=== PATIENT | male | born 1980 | race Hispanic/Latino ===

== ENCOUNTER → 2018-10-12 | Outpatient (REF) | payer OTHER | LOC: M SFHCLERA 17:01 | PROVIDERS: ATTEND Nurse Practitioner Family | DX: R53.81 Other malaise (principal) ==

== ENCOUNTER 2018-12-29 12:27 | Emergency (ER) | payer OTHER ==
[~2018-12-29] VITALS: Ht 167.6 cm; Wt 78.2 kg
[2018-12-29 12:28] VITALS: BP 120/75
[2018-12-29] MEDS ORDERED: PROZ20CA11 PO (12:33)
[2018-12-29] MEDS ORDERED: KETOROLAC TROMETHAMINE 10 MG TAB PO ONE (13:30)
[2018-12-29] MEDS ORDERED: KETO10TAB PO (13:33)
--- NOTE | 2018-12-29 13:43 | REP ---
LEFT ANKLE, FOUR VIEWS: HISTORY: Pain. There is no acute fracture or dislocation. The joint space is normal in appearance. Soft tissue swelling is present. IMPRESSION: There is no acute fracture or dislocation. Electronically Signed by Elie Abarca MD 12/29/2018 01:44 P
== END 2018-12-29 13:45 | disposition home or self-care (01) ==
LOC: M ED 12:27
DX: S93.402A Sprain of unspecified ligament of left ankle, initial encounter (principal); M25.472 Effusion, left ankle; X50.1XXA Overexertion from prolonged static or awkward postures, initial encounter; Y92.89 Other specified places as the place of occurrence of the external cause; Z79.899 Other long term (current) drug therapy

== ENCOUNTER 2020-04-09 20:37 | Inpatient (IN) | payer OTHER ==
[~2020-04-09] VITALS: Ht 167.6 cm; Wt 81.7 kg
[~2020-04-09 20:37] MED LIST: KETO10TAB PO; PROZ20CA11 PO
[2020-04-09] MEDS ORDERED: NS 1,000 ML IV ONE (20:45)
[2020-04-09] MEDS ORDERED: MULTIVITAMIN -ADULT INJECTION 10 ML, THIAMINE INJection 100 MG, FOLIC ACID 1 MG in NS 1... IV ONE (21:00)
[2020-04-09 21:20] LABS: BASO % 0.2 % (0.0-1.0); HEMATOCRIT 43.3 % (42.0-52.0); HEMOGLOBIN 15.4 g/dl (13.5-17.5); LYMPH # 0.7 10^3/uL (1.5-5.0); LYMPH % 4.2 % (24.0-44.0); MEAN CORPUSCULAR HGB CONC 35.6 g/dl (32.0-36.5); MONO # 1.5 10^3/uL (0.0-0.8); MONO % 9.3 % (0.0-5.0); NEUTROPHILS # 14.2 10^3/uL (1.5-8.5); NEUTROPHILS % 85.9 % (36.0-66.0); PLATELET COUNT, AUTOMATED 177 10^3/uL (150-450); RED BLOOD COUNT 4.81 10^6/uL (4.30-6.10); WHITE BLOOD COUNT 16.5 10^3/uL (4.0-10.0)
[2020-04-09 21:49] LABS: ALBUMIN 4.3 GM/DL (3.2-5.2); ALT/SGPT 80 U/L (12-78); BILIRUBIN,DIRECT 0.7 MG/DL (0.0-0.2); BILIRUBIN,TOTAL 1.9 MG/DL (0.2-1.0); BLOOD UREA NITROGEN 21 MG/DL (7-18); CALCIUM LEVEL 9.4 MG/DL (8.5-10.1); CARBON DIOXIDE LEVEL 20 MEQ/L (21-32); CHLORIDE LEVEL 93 MEQ/L (98-107); CK-MB VALUE MASS 17.1 NG/ML (<3.6); CPK CREATINE PHOSPHOKINASE 2351 U/L (39-308); CREATININE FOR GFR 1.85 MG/DL (0.70-1.30); GLOMERULAR FILTRATION RATE 43.8 (>60); GLUCOSE, FASTING 145 MG/DL (70-100); LIPASE 414 U/L (73-393); MB/CK RELATIVE INDEX 0.73 (< OR =4); POTASSIUM SERUM 3.4 MEQ/L (3.5-5.1); SODIUM LEVEL 133 MEQ/L (136-145); TROPONIN I < 0.02 NG/ML (< 0.10)
[2020-04-09] MEDS ORDERED: PHENobarbital INJ 65 MG/ML VIAL (J2560) IV ONE ×3 (22:00→22:30)
--- NOTE | 2020-04-09 22:14 | REPVR ---
PROCEDURE INFORMATION: Exam: CT Head Without Contrast Exam date and time: 04/09/2020 10:04 PM Age: 39 years old Clinical indication: Pain; Headache; Additional info: Traum TECHNIQUE: Imaging protocol: Computed tomography of the head without contrast. Radiation optimization: All CT scans at this facility use at least one of these dose optimization techniques: automated exposure control; mA and/or kV adjustment per patient size (includes targeted exams where dose is matched to clinical indication); or iterative reconstruction. COMPARISON: No relevant prior studies available. FINDINGS: Brain: Normal. No hemorrhage. Unremarkable white matter. No mass effect. Ventricles: Normal. No ventriculomegaly. Bones/joints: Unremarkable. No acute fracture. Sinuses: Visualized sinuses are unremarkable. No fluid levels. Mastoid air cells: Visualized mastoid air cells are well aerated. Soft tissues: Unremarkable. IMPRESSION: No acute intracranial abnormality. Electronically signed by: Humphrey Macedo On 04/09/2020 22:13:18 PM
--- NOTE | 2020-04-09 22:19 | REPVR ---
PROCEDURE INFORMATION: Exam: CT Abdomen And Pelvis Without Contrast Exam date and time: 04/09/2020 10:04 PM Age: 39 years old Clinical indication: Abdominal pain; Epigastric; Additional info: [place]um TECHNIQUE: Imaging protocol: Computed tomography of the abdomen and pelvis without contrast. Radiation optimization: All CT scans at this facility use at least one of these dose optimization techniques: automated exposure control; mA and/or kV adjustment per patient size (includes targeted exams where dose is matched to clinical indication); or iterative reconstruction. COMPARISON: No relevant prior studies available. FINDINGS: Liver: There is a diffuse decrease in hepatic parenchymal density, consistent with steatosis. Gallbladder and bile ducts: Increased density within the lumen of the gallbladder consistent with sludge. No calculi visualized. Pancreas: Normal. No ductal dilation. Spleen: Normal. No splenomegaly. Adrenals: Normal. No mass. Kidneys and ureters: Normal. No hydronephrosis. Stomach and bowel: There is gastric distention with retained secretions. Clinical correlation to exclude gastroparesis or gastric outlet obstruction suggested. Streaky increased density demonstrated in the mesentery adjacent to the gastric antrum and duodenum may be posttraumatic. Appendix: No evidence of appendicitis. Intraperitoneal space: Unremarkable. No free air. No significant fluid collection. Vasculature: Unremarkable. No abdominal aortic aneurysm. Lymph nodes: Unremarkable. No enlarged lymph nodes. Bladder: Unremarkable as visualized. Reproductive: The prostate gland demonstrates mild hyperplasia. Bones/joints: Fracture transverse process on the left at L1. Soft tissues: Unremarkable. IMPRESSION: 1. Fracture transverse process on the left at L1. 2. There is a diffuse decrease in hepatic parenchymal density, consistent with steatosis. 3. Increased density within the lumen of the gallbladder consistent with sludge. No calculi visualized. 4. There is gastric distention with retained secretions. Clinical correlation to exclude gastroparesis or gastric outlet obstruction suggested. 5. Mild prostatic hyperplasia. 6. Streaky increased density demonstrated in the mesentery adjacent to the gastric antrum and duodenum may be posttraumatic. Electronically signed by: Humphrey Macedo On 04/09/2020 22:19:18 PM
[2020-04-09] MEDS ORDERED: ONDANSETRON 4MG/2ML VIAL IV ONE (23:00)
[2020-04-09] MEDS ORDERED: PHENobarbital INJ 65 MG/ML VIAL (J2560) IV STA ×2 (23:02→23:14)
[2020-04-09] MEDS ORDERED: POTASSIUM CHLORIDE 10 MEQ SR TABLET PO ONE (23:15)
--- NOTE | 2020-04-09 23:34 | HPEPDOC ---
General Date of Admission 04/09/20 Date of Service: Apr 09, 2020 Chief Complaint The patient is a 39-year-old male admitted with a reason for visit of Abd Pain. 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 Patient stated that he has been diagnosed with alcoholism and he was on rehabilitation program however he recently started drinking again. He states that he drinks 12 bottles of beer every day and hard liquor. Patient also reported that he had some suicidal ideation. Today he developed shakiness of his body and hands tremors associated with nausea and multiple episodes of vomiting. In ER patient was found to have acute severe distress, leukocytosis of 16.5, potassium 3.4 creatinine 1.85, total bili 1.9, [id number], ALT 18, CPK 2351. CT abdomen/pelvis showed fractured transverse process on the left at 1 L1, There is a diffuse decrease in hepatic parenchymal density, consistent with steatosis. Home Medications Scheduled Fluoxetine HCl (Prozac) 20 Mg Cap, 60 MG PO DAILY, (Reported) Folic Acid (Folic Acid) 1 Mg Tablet, 1 MG PO DAILY Multivitamins (Thera M Plus Tablet) 1 Each Tablet, 1 TAB PO DAILY Allergies Coded Allergies: No Known Allergies (Unverified , 12/29/18) Past Medical History Medical History Depression, anxiety, EtOH abuse Family History Both parents suffered from alcoholism Social History * Smoker: current smoker Alcohol: heavy Drugs: denies A-FIB/CHADSVASC A-FIB History Current/History of A-Fib/PAF?: No Current PO Anticoag Therapy: No Review of Systems Constitutional: Denies: Fever, Malaise Eyes: Denies: Pain, Vision change ENT: Denies: Head Aches, Ear Pain Skin: Denies: Rash, Lesions Pulmonary: Denies: Dyspnea, Cough Cardiovascular: Reports: Palpitations Gastrointestinal: Reports: Nausea, Vomiting Genitourinary: Denies: Dysuria, Frequency Hematologic: Reports: Bruising; Denies: Bleeding Excessively Endocrine: Denies: Polydipsia, Polyphagia Musculoskeletal: Reports: Back Pain Neurological: Denies: Weakness, Numbness Psych: Reports: Anxiety Physical Examination General Exam: Positive: Alert, Cooperative, Other (tender palpation over L1) Eye Exam: Positive: PERRLA ENT Exam: Positive: Atraumatic Neck Exam: Positive: Supple; Negative: JVD Chest Exam: Positive: Clear to auscultation Heart Exam: Positive: Tachycardic Telemetry: Positive: Sinus Abdomen Exam: Positive: BS Hypoactive Extremity Exam: Positive: Other (large bruise of left arm); Negative: Clubbing, Cyanosis Skin Exam: Positive: Nl turgor and temperature Neuro Exam: Positive: Cranial Nerves 3-12 NL Psych Exam: Positive: Anxiety Vital Signs Vital Signs Date Time Temp Pulse Resp B/P (MAP) Pulse Ox O2 Delivery O2 Flow Rate FiO2 04/09/20 22:22 132 22 97 Room Air 04/09/20 22:16 142/86 (104) 04/09/20 20:46 99.7 Laboratory Data Labs 24H Laboratory Tests 2 04/09/20 20:55: Immature Granulocyte % (Auto) 0.4, Neutrophils (%) (Auto) 85.9H, Lymphocytes (%) (Auto) 4.2L, Monocytes (%) (Auto) 9.3H, Eosinophils (%) (Auto) 0.0, Basophils (%) (Auto) 0.2, Neutrophils # (Auto) 14.2H, Lymphocytes # (Auto) 0.7L, Monocytes # (Auto) 1.5H, Eosinophils # (Auto) 0.0, Basophils # (Auto) 0.0, Nucleated Red Blood Cells % (auto) 0.0, Anion Gap 20H, Glomerular Filtration Rate 43.8L, Calcium Level 9.4, Total Bilirubin 1.9H, Direct Bilirubin 0.7H, Aspartate Amino Transf (AST/SGOT) 105H, Alanine Aminotransferase (ALT/SGPT) 80H, Alkaline Phosphatase 87, Total Creatine Kinase 2351H, Creatine Kinase MB 17.1H, Creatine Kinase MB Relative Index 0.73, Troponin I < 0.02, Total Protein 9.0H, Albumin 4.3, Albumin/Globulin Ratio 0.9, Lipase 414H, Ethyl Alcohol Level 0.040H CBC/BMP Laboratory Tests 04/09/20 20:55 Assessment/Plan Patient is 39 years old male with past medical history of alcoholism, depression, 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 Patient stated that he has been diagnosed with alcoholism and he was on rehabilitation program however he recently started drinking again. He states that he drinks 12 bottles of beer every day and hard liquor. Today he developed shakiness of his body and hands tremors associated with nausea and multiple episodes of vomiting. In ER patient was found to have acute severe distress, leukocytosis of 16.5, potassium 3.4 creatinine 1.85, to rancho bili 1.9, [id number], ALT 18, CPK 2351. CT abdomen/pelvis showed fractured transverse process on the left at 1 L1, There is a diffuse decrease in hepatic parenchymal density, consistent with steatosis. Problems (1) Alcohol withdrawal Status: Acute Problem Text: [facility] protocol IV fluid (2) Dehydration Status: Acute Problem Text: Continue IV hydration (3) Fracture of transverse process of lumbar vertebra Status: Acute Problem Text: Pain management (4) HILDA (acute kidney injury) Status: Acute Problem Text: Most likely combined renal and prerenal IV fluid Continue to monitor (5) Transaminitis Status: Chronic Problem Text: Most likely secondary to EtOH abuse Continue to monitor (6) Suicidal ideation Status: Acute Problem Text: Sitter consider psych evaluation after initial stabilization Plan / VTE VTE Prophylaxis Ordered?: Yes ASHLEY RAZA DO Apr 09, 2020 23:34
[2020-04-10] VITALS (9 sets, daily range): BP systolic 132–170; BP diastolic 65–86
[2020-04-10] MEDS: NS 1,000 ML IV SCH ×3 (00:01→17:16)
[2020-04-10] MEDS: LORazepam 2 MG TAB PO PRN ×3 (00:22→20:58)
[2020-04-10 04:42] LABS: HEMATOCRIT 35.7 % (42.0-52.0); MEAN CORPUSCULAR HEMOGLOBIN 32.1 pg (27.0-33.0); MEAN CORPUSCULAR HGB CONC 35.3 g/dl (32.0-36.5); MEAN CORPUSCULAR VOLUME 91.1 fl (80.0-96.0); PLATELET COUNT, AUTOMATED 115 10^3/uL (150-450); RED BLOOD COUNT 3.92 10^6/uL (4.30-6.10); WHITE BLOOD COUNT 12.3 10^3/uL (4.0-10.0)
[2020-04-10] MEDS ORDERED: CEPACOL LOZENGE PO PRN (04:45)
[2020-04-10 04:51] LABS: HEMOGLOBIN 12.6 g/dl (13.5-17.5)
[2020-04-10 05:16] LABS: ALBUMIN 3.3 GM/DL (3.2-5.2); ALT/SGPT 66 U/L (12-78); BILIRUBIN,TOTAL 1.8 MG/DL (0.2-1.0); BLOOD UREA NITROGEN 18 MG/DL (7-18); CALCIUM LEVEL 8.2 MG/DL (8.5-10.1); CARBON DIOXIDE LEVEL 26 MEQ/L (21-32); CHLORIDE LEVEL 103 MEQ/L (98-107); CREATININE FOR GFR 1.19 MG/DL (0.70-1.30); GLOMERULAR FILTRATION RATE > 60.0 (>60); GLUCOSE, FASTING 104 MG/DL (70-100); POTASSIUM SERUM 3.6 MEQ/L (3.5-5.1); SODIUM LEVEL 138 MEQ/L (136-145)
--- NOTE | 2020-04-10 07:08 | ECGEPIP ---
[facility] - ED Test Date: 2020-04-09 Pat Name: GENIE RAND Department: Room: [place] [address] Gender: Male Director Of Kids: MR : [id number] Requested By: SULEMAN ARELLANO Order Number: [id number] Reading MD: Zackary Hernandez Measurements Intervals [place] Rate: 141 P: 83 MD: 143 QRS: -85 QRSD: 93 T: 61 QT: 293 QTc: 449 Interpretive Statements SINUS TACHYCARDIA BASELINE ARTIFACT AFFECTS INTERPRETATION NO PRIORS FOR COMPARISON Electronically Signed on 04-10-2020 7:08:12 EDT by Zackary Hernandez
[2020-04-10] MEDS: MULTIVITAMINS/MINERALS THERAP 1 TAB PO SCH (08:44)
[2020-04-10] MEDS: THIAMINE 100 MG TAB PO SCH ×2 (08:44→20:58)
[2020-04-10] MEDS: FOLIC ACID 1 MG TAB PO SCH (08:44)
[2020-04-10] MEDS: HEPARIN SOD (PORCINE) 5000UNITS/ML VIAL (J1644 PER 1000UNITS) SC SCH ×2 (08:45→20:58)
--- NOTE | 2020-04-10 12:37 | IPNPDOC ---
Text Note Date of Service The patient was seen on 04/10/20. NOTE Subject: -No complaints this morning, feels much better, however still mildly tremulous Physical Examination General: NAD, Cooperative Eye: PERRLA, EOMI, anicteric ENT: Atraumatic, posterior oropharynx clear without exudates Neck : Supple, no JVD Chest: Clear to auscultation Heart: Tachycardic, otherwise regular rhythm, no m/r/g Abdomen: Normoactive sounds, soft, NTND Extremities: large bruising of left arm in two places, otherwise no swelling or edema, WWP Skin: Nl turgor and temperature Neuro: Cranial Nerves 3-12 NL, + tremors Psych Exam: AOx3, calm this morning Laboratory Data: reviewed Assessment: 39 years old M with alcohol use disorder, depression, 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 Problems (1) Alcohol withdrawal -s/p phenobarb and continue CIWA protocol -IV fluids -folate, thiamine (2) Dehydration -Continue IV hydration (3) Fracture of transverse process of lumbar vertebra -Continue PRN pain management (4) HILDA likely prerenal -continue IV fluid (5) Transaminitis: chronic most likely 2/2 alcohol abuse -Continue to monitor (6) Suicidal ideation -1:1 Sitter -psych evaluation after initial stabilization DVT ppx: heparin SQ VS,Fishbone, I+O VS, Fishbone, I+O Laboratory Tests 04/09/20 20:55 04/10/20 04:23 Vital Signs Date Time Temp Pulse Resp B/P (MAP) Pulse Ox O2 Delivery O2 Flow Rate FiO2 04/10/20 08:44 98.0 93 18 134/79 (97) 99 Room Air I&O- Last 24 Hours up to 6 AM 04/10/20 06:00 Intake Total 2131.2 ml Output Total 0 ml Balance 2131.2 ml AYO JALLOH MD Apr 10, 2020 12:37
[2020-04-11] VITALS (7 sets, daily range): BP systolic 132–147; BP diastolic 76–91
[2020-04-11] MEDS: NS 1,000 ML IV SCH (01:45)
[2020-04-11 05:11] LABS: HEMATOCRIT 35.3 % (42.0-52.0); MEAN CORPUSCULAR VOLUME 94.1 fl (80.0-96.0); PLATELET COUNT, AUTOMATED 106 10^3/uL (150-450); RED BLOOD COUNT 3.75 10^6/uL (4.30-6.10); WHITE BLOOD COUNT 7.2 10^3/uL (4.0-10.0)
[2020-04-11 05:31] LABS: BLOOD UREA NITROGEN 10 MG/DL (7-18); CALCIUM LEVEL 7.9 MG/DL (8.5-10.1); CARBON DIOXIDE LEVEL 25 MEQ/L (21-32); CHLORIDE LEVEL 108 MEQ/L (98-107); CREATININE FOR GFR 0.83 MG/DL (0.70-1.30); GLOMERULAR FILTRATION RATE > 60.0 (>60); GLUCOSE, FASTING 92 MG/DL (70-100); POTASSIUM SERUM 3.2 MEQ/L (3.5-5.1); SODIUM LEVEL 138 MEQ/L (136-145)
[2020-04-11] MEDS: FOLIC ACID 1 MG TAB PO SCH ×2 (08:19→08:29)
[2020-04-11] MEDS: MULTIVITAMINS/MINERALS THERAP 1 TAB PO SCH ×2 (08:19→08:29)
[2020-04-11] MEDS: THIAMINE 100 MG TAB PO SCH ×3 (08:19→21:06)
[2020-04-11] MEDS: HEPARIN SOD (PORCINE) 5000UNITS/ML VIAL (J1644 PER 1000UNITS) SC SCH ×3 (08:20→21:06)
[2020-04-11] MEDS ORDERED: POTASSIUM CHLORIDE 10 MEQ SR TABLET PO ONE (09:00)
[2020-04-11] MEDS ORDERED: SLF 3 ML SYR IV PRN (10:45)
--- NOTE | 2020-04-11 11:15 | IPNPDOC ---
Text Note Date of Service The patient was seen on 04/11/20. NOTE Subject: -No complaints this morning, feels much better Physical Examination General: NAD, Cooperative Eye: PERRLA, EOMI, anicteric ENT: Atraumatic, posterior oropharynx clear without exudates Neck : Supple, no JVD Chest: Clear to auscultation Heart: Tachycardic, otherwise regular rhythm, no m/r/g Abdomen: Normoactive sounds, soft, NTND Extremities: large bruising of left arm in two places, otherwise no swelling or edema, WWP Skin: Nl turgor and temperature Neuro: Cranial Nerves 3-12 NL, mild bilateral hand tremors Psych Exam: AOx3, calm this morning Laboratory Data: reviewed Imaging: CT A/P 1. Fracture transverse process on the left at L1. 2. There is a diffuse decrease in hepatic parenchymal density, consistent with steatosis. 3. Increased density within the lumen of the gallbladder consistent with sludge. No calculi visualized. 4. There is gastric distention with retained secretions. Clinical correlation to exclude gastroparesis or gastric outlet obstruction suggested. 5. Mild prostatic hyperplasia. 6. Streaky increased density demonstrated in the mesentery adjacent to the gastric antrum and duodenum may be posttraumatic. 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 Problems (1) Alcohol withdrawal -s/p phenobarb and continue [facility] protocol -IV fluids -folate, thiamine (2) Dehydration -Continue IV hydration (3) Fracture of transverse process of lumbar vertebra -Continue PRN pain management (4) HILDA likely prerenal: resolved with hydration -continue IV fluid -replete lytes to K>4 and Mag>2 (5) Transaminitis: chronic most likely 2/2 alcohol abuse -Continue to monitor (6) Suicidal ideation -1:1 Sitter -psych consultation today DVT ppx: heparin SQ VS,Fishbone, I+O VS, Fishbone, I+O Laboratory Tests 04/11/20 04:49 Vital Signs Date Time Temp Pulse Resp B/P (MAP) Pulse Ox O2 Delivery O2 Flow Rate FiO2 04/11/20 04:00 97.6 80 16 132/76 (94) 99 Room Air I&O- Last 24 Hours up to 6 AM 04/11/20 06:00 Intake Total 4920 ml Output Total 2700 ml Balance 2220 ml AYO JALLOH MD Apr 11, 2020 08:21
[2020-04-11] MEDS: SLF 3 ML SYR IV SCH ×2 (14:37→21:06)
[2020-04-11] MEDS: ONDANSETRON 4MG/2ML VIAL IV PRN (18:41)
[2020-04-11] MEDS: LORazepam 2 MG TAB PO PRN (18:48)
[2020-04-11] MEDS ORDERED: ACETAMINOPHEN TAB 650MG DOSE (2X325MG) PO PRN (21:00)
[2020-04-12] VITALS (10 sets, daily range): BP systolic 120–136; BP diastolic 67–89
[2020-04-12 05:11] LABS: HEMATOCRIT 37.3 % (42.0-52.0); HEMOGLOBIN 12.8 g/dl (13.5-17.5); MEAN CORPUSCULAR HEMOGLOBIN 32.1 pg (27.0-33.0); MEAN CORPUSCULAR HGB CONC 34.3 g/dl (32.0-36.5); MEAN CORPUSCULAR VOLUME 93.5 fl (80.0-96.0); PLATELET COUNT, AUTOMATED 110 10^3/uL (150-450); RED BLOOD COUNT 3.99 10^6/uL (4.30-6.10); WHITE BLOOD COUNT 6.7 10^3/uL (4.0-10.0)
[2020-04-12] MEDS: SLF 3 ML SYR IV SCH ×3 (05:13→20:18)
[2020-04-12 05:25] LABS: BLOOD UREA NITROGEN 11 MG/DL (7-18); CALCIUM LEVEL 8.2 MG/DL (8.5-10.1); CARBON DIOXIDE LEVEL 25 MEQ/L (21-32); CHLORIDE LEVEL 105 MEQ/L (98-107); CREATININE FOR GFR 0.84 MG/DL (0.70-1.30); GLOMERULAR FILTRATION RATE > 60.0 (>60); GLUCOSE, FASTING 87 MG/DL (70-100); POTASSIUM SERUM 3.4 MEQ/L (3.5-5.1); SODIUM LEVEL 136 MEQ/L (136-145)
[2020-04-12] MEDS: FOLIC ACID 1 MG TAB PO SCH (08:40)
[2020-04-12] MEDS: HEPARIN SOD (PORCINE) 5000UNITS/ML VIAL (J1644 PER 1000UNITS) SC SCH ×2 (08:40→20:17)
[2020-04-12] MEDS: THIAMINE 100 MG TAB PO SCH ×2 (08:41→20:18)
[2020-04-12] MEDS: MULTIVITAMINS/MINERALS THERAP 1 TAB PO SCH (08:41)
[2020-04-12] MEDS ORDERED: POTASSIUM CHLORIDE 10 MEQ SR TABLET PO ONE (09:00)
--- NOTE | 2020-04-12 09:22 | MHCR ---
DATE OF CONSULTATION: 04/11/2020 This is a telemedicine video assessment, it is being done because of the virus pandemic, the patient is an inpatient. Vital Signs: Blood pressure 147/80, pulse 90, temperature 97.6. CHIEF COMPLAINT: Feels depressed. 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 I have been asked to see him by the hospitalist. The patient had come in, has trouble with alcohol, and is withdrawing from it, and made a statement indicating that he wanted to and that prompted the consult. The patient was interviewed, some of the history was obtained from the chart. The patient is seen in the presence of others; in fact, one of the nurses, Katie, from inpatient psychiatry was there. He has difficulties with alcohol, has been to rehab, says this was in [place], about 3 months or so ago. He did well afterwards, says would only drink occasionally. He was seen at [facility], says has a counselor, also clinician who prescribes medicines, is on Prozac at 60 mg daily. He says he used to be on naltrexone as well, 50 mg daily, but that he stopped it a few weeks ago. He says drinking got worse a couple of weeks ago, and has been drinking regularly daily since then. Says impacted his work to some extent, they have been concerned, and he came to the hospital after he had started vomiting, says had been drinking at the time. Says was concerned he was getting a heart attack, says called a friend, asked him to take him to the hospital, the friend suggested that he call the ambulance. He was brought here. He was admitted to the Department of Medicine, under the [facility] care. He has felt depressed the last couple of weeks, and had suggested that did not want to carry on, words to that effect, but denies he felt suicidal. Says had no intentions of killing himself. Feels he had felt that way as he had been drinking and depressed. Denies any thoughts of harming himself, or any such plans, at present. He says about a week to 10 days ago was quite intoxicated, and had a knife, was thinking of cutting himself, was not sure if he wanted to , but says went to sleep afterwards, and when he woke up, felt better and admonished himself for the previous night's thoughts. He does not think he has ever come close to taking his own life or that he has felt suicidal when he considers periods of time when he is sober. Says feels better when he is not drinking, but that lately drinking has been impacting his functioning. Says has been noted by his immediate seniors as well. Says has little in terms of support here, says his family is in [place]. He is close to his mother. He says she, in fact, is on her way here. She is supportive. When not drinking, there are times when he feels depressed, though unclear if this is pervasive. No history consistent with hypomania, nor mora. No post-traumatic stress disorder. No history of hallucinations. PAST PSYCHIATRIC HISTORY: Has not been hospitalized on psychiatry unit, per the patient. Has been on Prozac, takes 60 mg daily, gets it through [facility]. Says most of the visits, including apparently with the counselor, are remote because of the COVID crisis. He also has a primary rn home care that he sees. He is unsure if he has ever been referred to a specialist. He is seen at [facility], goes there regularly, sees a counselor, says visits are remote for the most part. FAMILY PSYCHIATRIC HISTORY: Denies any as far as he can tell. SUBSTANCE ABUSE HISTORY: Has had difficulties with alcohol for a number of years, and has had treatment, attended rehab, this was in [place] a few months ago, says completed it, generally did well for a couple of months, until the drinking became heavy a couple of weeks ago. FAMILY SUBSTANCE ABUSE HISTORY: He says there is a history of difficulty with alcohol on both sides of his family. MEDICAL HISTORY: Please see above, has had difficulties with alcohol, and says vomited recently when using. 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 Says generally gets along with command, has, he suggests, a reasonable relationship with the person immediately in command above him. Stays on his own, off post. Says has supports, particularly his mother, who is on her way from [place]. Says has family in [place] who are supportive. His father several years ago. Says has a few supports locally. MENTAL STATUS EXAM: He is neat. He is generally cooperative. No abnormal movements noted. No psychomotor retardation. No agitation. Answers questions logically, coherently. Affect is restricted in range but shows reactivity. He is somewhat depressed and denies any suicidal thoughts or intent. Denies any homicidal ideas or intent. There is no evidence of any psychosis. Does not appear to be internally preoccupied. No delusional ideations elicited. He is alert, oriented to time, place and person. Cognition is grossly intact. Intellect is average. Judgment is fair to good. Insight is fair to good. ASSESSMENT: Other specified depressive disorder. Alcohol use disorder. Consider alcohol-induced depressive disorder. Recent increase in drinking. Difficulty maintaining sobriety. Limited local supports. He is depressed, particularly more so lately, and this has worsened with the increase in the consumption of alcohol. He denies any current suicidal thoughts or intent. It is quite likely that he will start drinking again on discharge, unless monitored, and the drinking addressed. He is a part of the alcohol treatment program at [facility], though the details are unclear. The alcohol is likely to worsen his mood, and also , which may contribute to his thoughts of hurting himself. RECOMMENDATIONS: I would suggest continuing current care, observing for withdrawal symptoms, and addressing them. I would also suggest that he followup at outpatient behavioral health at the earliest possible opportunity, on Monday (today is Monday), if he is discharged by then. If he is discharged before Monday, strongly suggest that there is a person monitoring him at home. He says his mother is coming in from [place]. She gets there either late today or tomorrow. Given the COVID pandemic, unclear if she will need to quarantine, so that may be a factor. Should his mother monitor him, she should have the ability to contact his chain of command if that has worsened, and he should be seen by his outpatient clinicians as soon as possible on Monday. Should he be discharged before Monday, and is sent home, I would strongly suggest that arrangements are made with his chain of command, so he can be monitored until seen on Monday by his mental health clinicians. Would suggest that he go to the [facility] if that would optimize the monitoring until he is seen on Monday for an assessment. Should the above not be feasible, they need to consider an inpatient stay in psychiatry. At present, I do not think that that is an absolute necessity, and he does not meet criteria for involuntary hospitalization. I have suggested that he go in voluntarily. He does not think that he needs to, but will require monitoring, as discussed above. Thank you for the consult. If there are any questions, please call. The assessment took 50 minutes.
--- NOTE | 2020-04-12 11:36 | IPNPDOC ---
Text Note Date of Service The patient was seen on 04/12/20. NOTE Subject: -No complaints this morning -Was anxious yesterday evening and had 1 dose of ativan -Was seen by psychiatry that recommended discharge with monitoring per [place] planning without ariana recommendation for IMHU admission Physical Examination General: NAD, Cooperative Eye: PERRLA, EOMI, anicteric ENT: Atraumatic, posterior oropharynx clear without exudates Neck : Supple, no JVD Chest: Clear to auscultation Heart: Tachycardic, otherwise regular rhythm, no m/r/g Abdomen: Normoactive sounds, soft, NTND Extremities: large bruising of left arm in two places, otherwise no swelling or edema, WWP Skin: Nl turgor and temperature Neuro: Cranial Nerves 3-12 NL, mild bilateral hand tremors Psych Exam: AOx3, calm this morning Laboratory Data: reviewed, stable, K 3.4 (repleted) Imaging: CT A/P 1. Fracture transverse process on the left at L1. 2. There is a diffuse decrease in hepatic parenchymal density, consistent with steatosis. 3. Increased density within the lumen of the gallbladder consistent with sludge. No calculi visualized. 4. There is gastric distention with retained secretions. Clinical correlation to exclude gastroparesis or gastric outlet obstruction suggested. 5. Mild prostatic hyperplasia. 6. Streaky increased density demonstrated in the mesentery adjacent to the gastric antrum and duodenum may be posttraumatic. 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 Problems (1) Alcohol withdrawal -s/p phenobarb and continue CIWA protocol, dc PRN ativan and monitor -IV fluids -folate, thiamine (2) Dehydration: resolved, s/p hydration (3) Fracture of transverse process of lumbar vertebra -Continue PRN pain management (4) HILDA likely prerenal: resolved with hydration -replete lytes to K>4 and Mag>2 (5) Transaminitis: chronic most likely 2/2 alcohol abuse -Continue to monitor (6) Suicidal ideation -1:1 Sitter -Was seen by psychiatry that recommended discharge with monitoring per [place] planning without ariana recommendation for IMHU admission. Will be difficult to organize for safe discharge on a Monday, so will plan for [facility] AM discharge. DVT ppx: heparin SQ VS,Fishbone, I+O VS, Fishbone, I+O Laboratory Tests 04/12/20 04:40 Vital Signs Date Time Temp Pulse Resp B/P (MAP) Pulse Ox O2 Delivery O2 Flow Rate FiO2 04/12/20 08:21 94 133/67 04/12/20 07:34 97.3 16 100 Room Air I&O- Last 24 Hours up to 6 AM 04/12/20 06:00 Intake Total 1860 ml Output Total 2125 ml Balance -265 ml AYO JALLOH MD Apr 12, 2020 08:36
[2020-04-12] MEDS: ONDANSETRON 4MG/2ML VIAL IV PRN (17:54)
[2020-04-12] MEDS ORDERED: LORazepam 2 MG TAB PO PRN ×2 (23:00)
[2020-04-13] MEDS: SLF 3 ML SYR IV SCH (05:37)
[2020-04-13 06:00] VITALS: BP 122/78
[2020-04-13] MEDS ORDERED: POTASSIUM CHLORIDE 10 MEQ SR TABLET PO ONE (07:00)
[2020-04-13] MEDS: HEPARIN SOD (PORCINE) 5000UNITS/ML VIAL (J1644 PER 1000UNITS) SC SCH (08:00)
[2020-04-13] MEDS: FOLIC ACID 1 MG TAB PO SCH (08:00)
[2020-04-13] MEDS: MULTIVITAMINS/MINERALS THERAP 1 TAB PO SCH (08:00)
[2020-04-13] MEDS ORDERED: FOLIC ACID 1 MG TAB PO SCH (09:00)
[2020-04-13] MEDS ORDERED: FOLI1TAB11 PO (11:27)
[2020-04-13] MEDS ORDERED: VITMTA PO (11:27)
--- NOTE | 2020-04-13 11:42 | DS.PDOC ---
Discharge Summary General Date of Admission Apr 09, 2020 at 23:10 Date of Discharge 04/13/2020 Primary Care Physician: A Attending Physician: AYO JALLOH MD Specialist/Consultants Involve: Heriberto Sandhu MD Discharge Summary PROCEDURES PERFORMED DURING STAY: None ADMITTING DIAGNOSES: 1. Alcohol withdrawal 2. Alcohol intoxication 3. Dehydration DISCHARGE DIAGNOSES: 1. Alcohol withdrawal 2. Alcohol intoxication 3. Dehydration 4. Depression with suicidal ideation reported at presentation 5. Anxiety 6. Rhabdomyolysis 7. HILDA 8. Fractured transverse process on the left at 1 L1, 2/2 trauma 9. Alcohol pattern hepatic injury with transaminitis and hepatic steatosis COMPLICATIONS/CHIEF COMPLAINT: Dehydration, Alcohol Withdrawl,Alcohol Consumption. 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 Patient stated that he has been diagnosed with alcoholism and he was in a rehabilitation program however he recently started drinking again. He states that he drinks 12 bottles of beer every day and hard liquor as well. On the day of presentation, he developed shakiness of his body and hands tremors associated with nausea and multiple episodes of vomiting. HOSPITAL COURSE: In ER patient was found to be in acute severe distress, leukocytosis of 16.5, potassium 3.4 creatinine 1.85, total bili 1.9, [id number], ALT 18, CPK 2351. CT abdomen/pelvis showed fractured transverse process on the left at 1 L1, as well as diffuse decrease in hepatic parenchymal density, consistent with steatosis. He was given phenobarbital and admitted to the PCU for severe alcohol withdrawal, HILDA, rhabdomyolysis and dehydration. He was started on the CIWA protocol with symptom triggered ativan and thankfully did not require aggressive pain medication for the L1 fracture. He received aggressive hydration, thiamine, folate and had a 1:1 sitter for having expressed suicidal ideation at presentation. With hydration Hilda resolved, rhabdomyolysis resolved and his transaminitis improved. Psychiatry was consulted and he was evaluated by Dr. Sandhu who deemed him safe for discharge with plan for monitoring via [place] protocol and prompt referral to behavioral health at [place]. I spoke with Captain Saenz at [facility] who organized for him to be safely picked up by [facility]. DISCHARGE MEDICATIONS: Please see below. ALLERGIES: Please see below. PHYSICAL EXAMINATION ON DISCHARGE: VITAL SIGNS: Please see below. General: NAD, Cooperative Eye: PERRLA, EOMI, anicteric ENT: Atraumatic, posterior oropharynx clear without exudates Neck : Supple, no JVD Chest: Clear to auscultation Heart: Tachycardic, otherwise regular rhythm, no m/r/g Abdomen: Normoactive sounds, soft, NTND Extremities: large bruising of left arm in two places, otherwise no swelling or edema, WWP Skin: Nl turgor and temperature Neuro: Cranial Nerves 3-12 NL, mild bilateral hand tremors Psych Exam: AOx3, calm this morning LABORATORY DATA: Please see below. IMAGING: CT head: No acute intracranial abnormalities CT A/P 1. Fracture transverse process on the left at L1. 2. There is a diffuse decrease in hepatic parenchymal density, consistent with steatosis. 3. Increased density within the lumen of the gallbladder consistent with sludge. No calculi visualized. 4. There is gastric distention with retained secretions. Clinical correlation to exclude gastroparesis or gastric outlet obstruction suggested. 5. Mild prostatic hyperplasia. 6. Streaky increased density demonstrated in the mesentery adjacent to the gastric antrum and duodenum may be posttraumatic. PROGNOSIS: Good with alcohol abstinence ACTIVITY: As tolerated DIET: regular DISCHARGE PLAN: Home under close supervision per [place] unit captain, with plan for prompt evaluation by [facility] behavioral health provider DISPOSITION: Home DISCHARGE INSTRUCTIONS: 1. Home under close supervision per [place] unit captain, with plan for prompt evaluation by [place] behavioral health provider ITEMS TO FOLLOWUP ON ON OUTPATIENT: 1. Alcohol use disorder 2. Depression with suicidal ideation DISCHARGE CONDITION: Stable TIME SPENT ON DISCHARGE: 42 minutes. Vital Signs/I&Os Vital Signs Date Time Temp Pulse Resp B/P (MAP) Pulse Ox O2 Delivery O2 Flow Rate FiO2 04/13/20 06:00 98.2 68 20 122/78 (93) 98 04/12/20 17:35 Room Air I&O- Last 24 Hours up to 6 AM 04/13/20 06:00 Intake Total 2380 ml Output Total 1500 ml Balance 880 ml Microbiology Microbiology 04/10/20 Blood Culture - Preliminary, Resulted No Growth after 72 hours. All specime... Discharge Medications Scheduled Fluoxetine HCl (Prozac) 20 Mg Cap, 60 MG PO DAILY, (Reported) Folic Acid (Folic Acid) 1 Mg Tablet, 1 MG PO DAILY Multivitamins (Thera M Plus Tablet) 1 Each Tablet, 1 TAB PO DAILY Allergies Coded Allergies: No Known Allergies (Unverified , 12/29/18) AYO JALLOH MD Apr 13, 2020 11:42
== END 2020-04-13 12:01 | disposition home or self-care (01) | DRG 898 ==
LOC: M ED 20:37 → M ED INP 23:10 → ENRESERV 04-10 00:58 → M PCU 04-10 01:09 → M MSPAV 04-12 17:30
PROVIDERS: ADMIT Internal Medicine; ATTEND Internal Medicine
DX: F10.239 Alcohol dependence with withdrawal, unspecified (principal); S32.018A Other fracture of first lumbar vertebra, initial encounter for closed fracture; N17.9 Acute kidney failure, unspecified; R45.851 Suicidal ideations; M62.82 Rhabdomyolysis; E86.0 Dehydration; F32.89 Other specified depressive episodes; F41.9 Anxiety disorder, unspecified; Z79.899 Other long term (current) drug therapy; F17.200 Nicotine dependence, unspecified, uncomplicated; Z81.1 Family history of alcohol abuse and dependence; R74.0 Nonspecific elevation of levels of transaminase and lactic acid dehydrogenase [LDH]; K70.0 Alcoholic fatty liver; X58.XXXA Exposure to other specified factors, initial encounter; Y92.9 Unspecified place or not applicable; Y93.9 Activity, unspecified; Y99.8 Other external cause status

== ENCOUNTER → 2020-06-15 | Outpatient (CLI) | payer OTHER ==
[~2020-06-15] MED LIST changes: +FOLI1TAB11 PO; +VITMTA PO
--- NOTE | 2020-07-14 11:07 | REP ---
GALLBLADDER ULTRASOUND CLINICAL: Functional dyspepsia. TECHNIQUE: Real-time franco scale and color Doppler evaluation using curved array transducer. FINDINGS: Liver and pancreas are normal in contour, size, and echogenicity without focal hepatic or pancreatic lesions identified. The gallbladder is normal and without gallstones, wall thickening, or pericholecystic fluid. No biliary ductal dilatation is appreciated and the common bile duct measures 3.7 mm in diameter. The right kidney is normal in reniform shape and measures 9.6 x 6.2 x 5.3 cm without hydronephrosis. No ascites in the visualized right upper quadrant. IMPRESSION: Normal gallbladder and right upper quadrant ultrasound. MTDD
--- NOTE | 2020-07-14 11:08 | REP ---
HIDA SCAN WITH GALLBLADDER EJECTION FRACTION HISTORY: Functional dyspepsia. FINDINGS: Following the intravenous administration of 6.6 mCi Technetium-99m mebrofenin, multiple images of the right upper quadrant are performed every 5 minutes for a period of one hour. The gallbladder is visualized at 10 minutes post injection. There is biliary to bowel transit at approximately 45-50 minutes postinjection. There is no scintigraphic evidence of cholecystitis. At the one hour berhane 8 ounces of Ensure Enlive is ingested and further imaging performed for one hour. Gallbladder activity is measured and the gallbladder ejection fraction is calculated to be 47%, which is within normal range. IMPRESSION: Normal gallbladder ejection fraction of 47%. MTDD
== END ==
LOC: M RAD 07:19
PROVIDERS: ATTEND Internal Medicine Gastroenterology
DX: K30 Functional dyspepsia (principal)